=== PATIENT | male | born 1985 | race Hispanic/Latino ===

== ENCOUNTER 2018-10-15 11:07 | Inpatient (IN) | payer SELFPAY ==
[2018-10-15] MEDS ORDERED: Prevnar 13-Val Conj/PF 0.5 ML SYRINGE IM ONE (15:15)
[2018-10-15 15:18] VITALS: BMI 29.7
[2018-10-15] MEDS: Vancomycin HCl 1 GM in Premix Bag 1 BAG IVPB SCH (15:29)
[2018-10-15] MEDS: Morphine 4 MG/ML VIAL SLOW IVP PRN ×2 (15:36→20:03)
[2018-10-15] MEDS ORDERED: Ondansetron PF 4 MG/2 ML Vial ONE (16:09)
[2018-10-15] MEDS ORDERED: Dexamethasone 20 MG/5 ML VIAL ONE (16:09)
[2018-10-15] MEDS ORDERED: PROPOFOL 200 MG/20 ML VIAL ONE (16:09)
[2018-10-15] MEDS ORDERED: Ketorolac Tromethamine 30 MG/ML VIAL ONE (16:09)
[2018-10-15] MEDS ORDERED: Bacitracin Zinc Ointment 30 gm TUBE ONE (21:55)
[2018-10-15] MEDS ORDERED: Bupivacaine PF 0.5% 30 ML VIAL ONE (21:55)
[2018-10-15] MEDS ORDERED: Neomycin-Polymyxin 1 ML AMP ONE (21:55)
[2018-10-15] MEDS ORDERED: Sodium Chloride 0.9% 10 ML ONE (21:58)
[2018-10-15] MEDS ORDERED: Betamet Acet/Betamet Na Ph 30 MG/5 ML VIAL ONE (22:08)
[2018-10-15] MEDS ORDERED: Lidocaine 2% PF 5 ML VIAL ONE (22:08)
[2018-10-15] MEDS ORDERED: Hetastarch 6% 500 ML 0 ML ONE (22:08)
[2018-10-15] MEDS ORDERED: Sodium Chloride 0.9% 20 ML ONE ×2 (22:10→23:22)
[2018-10-15] MEDS ORDERED: Fentanyl 100 MCG/2 ML VIAL ONE (23:51)
[2018-10-16] MEDS ORDERED: Fentanyl 100 MCG/2 ML VIAL ONE ×2 (01:13→03:01)
[2018-10-16] MEDS ORDERED: Hetastarch 6% 500 ML 0 ML ONE (01:36)
[2018-10-16] MEDS ORDERED: Heparin 10,000 UNITS/1 ML VIAL ONE (01:36)
[2018-10-16] MEDS ORDERED: Lidocaine 2% PF 5 ML VIAL ONE (01:36)
[2018-10-16] MEDS ORDERED: Heparin 5,000 UNITS/ML VIAL ONE (01:37)
[2018-10-16] MEDS ORDERED: Sodium Chloride 0.9% 0 ML ONE (03:07)
[2018-10-16] MEDS ORDERED: Fentanyl 100 MCG/2 ML VIAL SLOW IVP PRN (03:10)
[2018-10-16] MEDS ORDERED: Bisacodyl 10 MG SUPP PR PRN (03:10)
[2018-10-16] MEDS ORDERED: Promethazine HCl 25 MG/ML VIAL IM PRN (03:10)
[2018-10-16] MEDS ORDERED: traMADol HCl 50 MG TAB PO PRN (03:10)
[2018-10-16] MEDS ORDERED: Ondansetron PF 4 MG/2 ML Vial IV PRN (03:10)
[2018-10-16] MEDS ORDERED: Morphine 4 MG/ML VIAL SLOW IVP PRN (03:10)
[2018-10-16] MEDS ORDERED: HYDROcodone/Acetaminophen 10/325 mg Tablet PO PRN (03:10)
[2018-10-16] MEDS ORDERED: Milk Of Magnesia 30 ML UDCUP PO PRN (03:10)
[2018-10-16] MEDS ORDERED: Meperidine HCl/PF 25 MG/ML VIAL IM PRN (03:14)
[2018-10-16] MEDS ORDERED: Ketorolac Tromethamine 30 MG/ML VIAL IVP PRN (03:14)
[2018-10-16] MEDS ORDERED: TETANUS AND DIPHTHERIA TOX/PF 0.5 ML DISP.SYRIN IM SCH (03:15)
[2018-10-16] MEDS ORDERED: Communication Order-Pharmacy FS SCH (03:15)
[2018-10-16] MEDS ORDERED: Promethazine HCl 25 MG/ML VIAL ONE (03:29)
[2018-10-16] MEDS: Vancomycin HCl 1 GM in Premix Bag 1 BAG IVPB SCH ×2 (04:03→16:17)
[2018-10-16] MEDS: Sodium Chloride 0.9% 100 ML IV SCH (04:41)
[2018-10-16] MEDS: Sodium Chloride 0.9% 1,000 ML IV SCH ×2 (04:41→11:37)
[2018-10-16] MEDS: Clindamycin/D5W 900 MG in Premix Bag 1 BAG IVPB SCH ×3 (05:18→22:32)
[2018-10-16 06:47] LABS: #Lymphocytes 0.9 thou/uL (1.20-3.40); #Monocytes 0.2 thou/uL (0.11-0.59); #Neutrophils 13.9 thou/uL (1.40-6.50); %Eosinophils 0.1 % (0.0-10.0); %Lymphocytes 5.8 % (21.0-51.0); %Monocytes 1.3 % (0.0-10.0); %Neutrophils 92.8 % (42.0-75.0); Hemoglobin 15.4 g/dL (14.0-18.0); Mean Corpuscular Hemoglobin 32.3 pg (27.0-31.0); Mean Platelet Volume 7.7 fL (7.4-10.4); Platelet Count 203 thou/uL (130-400); RBC Distribution Width 11.9 % (11.5-14.5); Red Blood Cell (RBC) Count 4.77 mill/uL (4.70-6.10)
--- NOTE | 2018-10-16 08:48 | RAD ---
INTRAOPERATIVE FLUOROSCOPY: DATE: 10/16/18 HISTORY: ORIF. COMPARISON: None. EXPOSURE: 93.4 seconds. 1.97 mGy*cm^2. FINDINGS: Eight fluoroscopic images demonstrate a fracture involving the distal phalanx of the right hand first digit. There is placement of four separate K wires throughout the fracture. Additional images of the index finger are noted. IMPRESSION: Fluoroscopy as above. POS: DOREEN
[2018-10-16] MEDS ORDERED: VANC / ABX IVPB PRN (12:40)
[2018-10-16] MEDS: HYDROcodone/Acetaminophen 5/325 mg Tablet PO PRN (21:10)
[2018-10-17] MEDS: Sodium Chloride 0.9% 1,000 ML IV SCH ×2 (01:28→09:42)
[2018-10-17 02:21] LABS: Vancomycin, Trough 8.4 ug/mL
[2018-10-17] MEDS: Vancomycin HCl 1.5 GM in Sodium Chloride 0.9% 250 ML 300 ML IVPB SCH ×2 (02:45→16:11)
[2018-10-17] MEDS: Clindamycin/D5W 900 MG in Premix Bag 1 BAG IVPB SCH ×2 (05:30→14:43)
[2018-10-17] MEDS: HYDROcodone/Acetaminophen 5/325 mg Tablet PO PRN ×3 (05:33→16:10)
[2018-10-17 16:02] VITALS: BP 129/79; TEMP 98.5
--- NOTE | 2018-10-18 12:52 | OP ---
DATE OF PROCEDURE: 10/16/2018 PREOPERATIVE DIAGNOSES: 1. Right thumb open distal phalanx fracture with nail bed laceration. 2. Right thumb ulnar digital nerve laceration. 3. Right middle phalanx and proximal phalanx fracture with open middle finger PIP joint and zone 1, 2, and 3 laceration longitudinal of the extensor mechanism. POSTOPERATIVE DIAGNOSES: 1. Right thumb open distal phalanx fracture with nail bed laceration. 2. Right thumb ulnar digital nerve laceration. 3. Right middle phalanx and proximal phalanx fracture with open middle finger PIP joint and zone 1, 2, and 3 laceration longitudinal of the extensor mechanism. PROCEDURES PERFORMED: Right thumb: 1. Debridement of open fracture material. 2. Open reduction and internal fixation of the distal phalanx fracture, right thumb. 3. Right thumb bone graft with Synthes putty (minor bone grafting, CPT 27673). 4. Nailbed removal. 5. Microscopic neuroplasty of the ulnar digital nerve. 6. Microscopic repair of the ulnar digital nerve. 7. Right thumb 4 cm wound closure. Right middle finger: 1. Right middle finger wound debridement. 2. Right middle finger debridement associated open fracture. 3. Right middle finger open treatment middle phalanx fracture central slip repair, which would be a zone 2 extensor tendon repair. 4. Zone 1 extensor terminal tendon repair. 5. Right middle finger 8 cm open wound closure and with both application of a short-arm splint. INDICATIONS: The patient sustained saw injuries to the areas listed above and because of open fracture and possible contamination, underwent the procedures listed above. ESTIMATED BLOOD LOSS: 20 mL. TOURNIQUET TIME: 114 minutes. DESCRIPTION OF PROCEDURE: After successful general endotracheal anesthesia, the limb was prepped and draped. The patient then had a metacarpophalangeal joint block level of 10 mL at the thumb and 10 mL at the base of the middle finger where index finger was not injured using 0.5% Marcaine without epinephrine. We then evaluated both the digits and did try to perform simultaneous procedures on each finger, this was made at the right thumb. We then used a [place] blade and tenotomy scissors, curette, and irrigation with Pulsavac to treat the thumb. After debriding the fracture with these instruments, we used excisional technique and that would include bone and the fracture line as well as joint. This will be the same technique used for debridement in the right middle finger. We then performed open treatment to the dorsal ulnar incision of the distal phalanx fracture was at least 4 pieces and required multiple K-wires to include four different wires to stabilize it, but there was a defect which was stabilized. Because it had been debrided and cleaned, I tried to give the patient the best chance to heal, we then filled this with Synthes putty. We removed the nail in order to visualize the nail bed. At this point, the only laceration in the nail bed was the skin on the side near the fracture, so we repaired this with 5-0 nylon. The microscope was brought into field and we performed a microscopic neuroplasty of the ulnar digital nerve, and found the ulnar digital nerve had a laceration just at the rami, so we repaired rami under microscope with 9-0 Nurolon. The patient then had attention turned to the right middle finger. Here, his longitudinal laceration began over the distal third of the proximal phalanx. These include the entire middle phalanx and down to the base of the distal interphalangeal joint. The patient then had the debridement completed, and the central slip was repaired, the open treatment was performed of the proximal middle phalanx fracture, but because it was incomplete, once this was done, there was no fixation required. We then repaired the longitudinal laceration beginning at the extensor mechanism just proximal to the joint with interrupted 4-0 [id number] buried pattern. Then, we performed the same repair of the extensor tendon laceration, zone 2 and 3. Finally, the patient had an 8 cm wound and we finished this debridement as well, moderate amount of debris here, but we made it as clean as possible to support the repairs. We deflated the tourniquet. We then closed the 8 cm wound of the right middle finger without complication and stay using interrupted 4-0 nylon. We then performed the similar closure on the right thumb dorsal ulnar aspect using 4-0 nylon for the 4 cm wound here. The patient had pink digits, good refill, and we then placed him in a bulky dressing position of function for the thumb which is a 45-degree angle and for the lesser digits which would be slight flexion 30 degrees. The patient finished the operating room without evidence of anesthetic or operative complication. Splint had been applied. Job ID: [id number]
== END 2018-10-17 16:15 | disposition home or self-care (01) | DRG 514 ==
LOC: SURG A 13:22
PROVIDERS: ADMIT Orthopaedic Surgery Hand Surgery; ATTEND Orthopaedic Surgery Hand Surgery
PROC: 01Q40ZZ Repair Ulnar Nerve, Open Approach (ICD-10-PCS; principal; 2018-10-15)
PROC: 0PST04Z Reposition Right Finger Phalanx with Internal Fixation Device, Open Approach (ICD-10-PCS; 2018-10-15)
DX: S62.521B Displaced fracture of distal phalanx of right thumb, initial encounter for open fracture (principal); S62.622B Displaced fracture of middle phalanx of right middle finger, initial encounter for open fracture; W45.0XXA Nail entering through skin, initial encounter; S64.01XA Injury of ulnar nerve at wrist and hand level of right arm, initial encounter
CPT/HCPCS: 36415; 76000; 80202; 85025; 90471; 90686; G0008; J0702; J1100; J1644; J1885; J2001; J2270; J2405; J2550; J2704; J3010; J3370; J3490; J7050; S0020